=== PATIENT | male | born 1950 | race Caucasian/White ===

== ENCOUNTER 2022-05-17 10:34 | Emergency (ER) | payer BC, MEDICARE ==
[2022-05-17] MEDS ORDERED: Ketorolac 30 MG/ML SDV IM ONE (11:23)
[2022-05-17 11:29] VITALS: BP 129/73; PULSE 89
== END 2022-05-17 12:36 | disposition home or self-care (01) ==
LOC: JP.ED 10:34
DX: U07.1 COVID-19 (principal); M54.50 Low back pain, unspecified; I10 Essential (primary) hypertension; I25.2 Old myocardial infarction; F17.210 Nicotine dependence, cigarettes, uncomplicated; Z79.82 Long term (current) use of aspirin; Z79.899 Other long term (current) drug therapy
CPT/HCPCS: 96372; 99283; J1885; U0002